=== PATIENT | female | born 1965 | race American Indian/Alaskan Native ===

== ENCOUNTER 2019-02-18 11:54 | Emergency (ER) | payer MEDICAID ==
[2019-02-18 12:14] VITALS: BP 210/113
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
[2019-02-18] MEDS ORDERED: TORADOL IM ONE (13:52)
[2019-02-18] MEDS ORDERED: DECADRON IM ONE (13:52)
[2019-02-18] MEDS ORDERED: CLEOCIN PO ONE (14:02)
--- NOTE | 2019-02-18 14:02 | Emergency Department Report ---
ED Rash HPI - HPI Chief Complaint: Skin Rash Stated Complaint: BACK PAIN/BI HAND/ELBOW RASH/CANT SLEEP Time Seen by Provider: 02/18/19 12:10 Duration: 2 weeks Location: Upper Extremities Suspected Cause: Unknown Rash Symptoms: Yes Itching, Yes Peeling, No Facial Swelling, No Tongue/Oral Swelling, No Breathing Difficulties, No Choking Sensation, No Wheezing/Dyspnea, No Blistering, No Fever, No Lightheaded, No Malaise, No Myalgias Severity: mild Other History: This is a 53-year-old female presents to the ED complaining rash to her hands. She denies contact with allergen. She denies fevers/chills/ ED Review of Systems ROS: Stated complaint: BACK PAIN/BI HAND/ELBOW RASH/CANT SLEEP Other details as noted in HPI Comment: All other systems reviewed and negative ED Past Medical Hx - Past Medical History Hx Hypertension: Yes Hx Psychiatric Treatment: Yes (Bipolar, PTSD) Additional medical history: bipolor. Hepatitis B - Surgical History Additional Surgical History: Hysterectomy - Social History Smoking Status: Current Every Day Smoker Substance Use Type: Alcohol - Medications Home Medications: Home Medications Medication Instructions Recorded Confirmed Last Taken Type hydrOXYzine PAMOATE (NF) [Vistaril] 25 mg PO Q6HR PRN #12 capsule 01/01/14 Unknown Rx risperiDONE [Risperdal] 2 mg PO QDAY #20 tab 01/01/14 Unknown Rx HYDROcodone/APAP 10-325 [Barrett 1 each PO Q6HR PRN #16 tablet 04/13/14 Unknown Rx 10-325 mg TAB] Sulfamethoxazole/Trimethoprim 1 each PO Q12H #14 tablet 04/13/14 Unknown Rx [Bactrim Ds] predniSONE [Deltasone] 20 mg PO TID #12 tab 04/13/14 Unknown Rx Cyclobenzaprine HCl [Flexeril 5 MG 5 mg PO TID #20 tab 04/28/16 Unknown Rx TAB] Ibuprofen [Motrin 600 MG tab] 600 mg PO Q8H PRN #40 tablet 04/28/16 Unknown Rx Clindamycin [Clindamycin CAP] 300 mg PO Q8H #21 cap 02/18/19 Unknown Rx Hydrocortisone 2.5% [Hytone 2.5% 1 applicatio TP TID #30 gm 02/18/19 Unknown Rx CREAM] traMADol [Ultram 50 MG tab] 50 mg PO Q6HR PRN #15 tablet 02/18/19 Unknown Rx Rash Exam - Exam General: Vital signs noted. No distress. Alert and acting appropriately. HEENT: No Periorbital Edema, No Conjuctival Injection, No Chemosis, No Perioral Edema, No Tongue Edema, No Uvular Edema, No Compromised Airway, No Drooling Lungs: Yes Good Air Exchange (Normal Breath Sounds), No Wheezes, No Ronchi, No Stridor, No Cough, No Labored Respirations, No Retractions, No Use of Accessory Muscles, No Other Abnormal Lung Sounds Heart: Yes Regular, No Murmur Skin: Yes Excoriations, Yes Tenderness, Yes Erythema, No Urticarial Rash, No Maculopapular Rash, No Morbilliform rash, No Bulla(e), No Weeping, No Edema, No Encrustations Other: Positive: Abdomen Normal, Neurologic Normal, Musculoskeletal Normal ED Course Vital Signs 02/18/19 12:10 Temperature 97.9 F Pulse Rate 68 Respiratory 18 Rate Blood Pressure 210/113 O2 Sat by Pulse 98 Oximetry ED Medical Decision Making - Medical Decision Making 53 -year-old female presents with bacterial skin infection to the hands Patient received Decadron, antibiotic and Toradol for pain in the ED. Discussed the patient take medication as prescribed. Discussed the patient follow up with the fitter and turner as well as a primary care physician. Vital signs are normal patient is in no acute distress. Critical care attestation.: If time is entered above; I have spent that time in minutes in the direct care of this critically ill patient, excluding procedure time. ED Disposition Clinical Impression: Skin lesion, infected, Rash of hands Disposition: [id number] TO HOME OR SELFCARE Is pt being admited?: No Does the pt Need Aspirin: No Condition: Stable Instructions: Impetigo (ED), Urticaria (ED), Acute Rash (ED) Additional Instructions: Make sure to follow up with the primary care physician as discussed. Take all your medications as you've been prescribed. If you have any worsening symptoms or develop new symptoms please return to ED immediately. Prescriptions: Clindamycin [Clindamycin CAP] 300 mg PO Q8H #21 cap Hydrocortisone 2.5% [Hytone 2.5% CREAM] 1 applicatio TP TID #30 gm traMADol [Ultram 50 MG tab] 50 mg PO Q6HR PRN #15 tablet PRN Reason: Pain Referrals: DAISY HUBER MD [Primary Care Provider] - 3-5 Days [facility] [Outside] - 3-5 Days [facility] [Outside] - 3-5 Days COLEMAN DOBSON MD [Staff Physician] - 3-5 Days Forms: Work/School Release Form(ED) Time of Disposition: 14:09
== END 2019-02-18 14:39 | disposition home or self-care (01) ==
LOC: ED 11:54
DX: L08.9 Local infection of the skin and subcutaneous tissue, unspecified (principal); B96.89 Other specified bacterial agents as the cause of diseases classified elsewhere; L98.9 Disorder of the skin and subcutaneous tissue, unspecified; I10 Essential (primary) hypertension; F17.200 Nicotine dependence, unspecified, uncomplicated; Z90.710 Acquired absence of both cervix and uterus
CPT/HCPCS: 96372; 99282; J1100; J1885

== ENCOUNTER 2020-04-27 11:00 | Outpatient (CLI) | payer MEDICAID | END 2020-04-27 11:01 | disposition home or self-care (01) | LOC: SLR 11:00 | PROVIDERS: ATTEND Otolaryngology | DX: G47.30 Sleep apnea, unspecified (principal) | CPT/HCPCS: 95810 ==

== ENCOUNTER 2020-05-20 11:00 | Outpatient (CLI) | payer MEDICAID | END 2020-05-20 11:01 | disposition home or self-care (01) | LOC: SLR 11:00 | PROVIDERS: ATTEND Otolaryngology | DX: G47.30 Sleep apnea, unspecified (principal) | CPT/HCPCS: 95811 ==

== ENCOUNTER 2020-11-02 09:00 | Outpatient (CLI) | payer MEDICARE ==
[2020-11-02 10:25] LABS: Hematocrit 37.6 % (30.3-42.9); Hemoglobin 12.7 gm/dl (10.1-14.3); Mean Corpuscular HGB Conc 34 % (30-34); Mean Corpuscular Volume 89 fl (79-97); Platelet Count 231 K/mm3 (140-440); Red Blood Count 4.22 M/mm3 (3.65-5.03)
[2020-11-02 10:47] LABS: ABG Base Excess -0.8 mmol/L (-2.0-3.0); ABG HCO3 23.9 mmol/L (20.0-26.0); ABG Methemoglobin 0.5 % (0.0-1.5); ABG Oxygen Saturation 96.6 % (95.0-99.0); ABG PCO2 39.7 mm Hg; ABG PH 7.398 pH Units (7.350-7.450); ABG PO2 78.3 mm Hg (80.0-90.0)
[2020-11-02 10:49] LABS: Alanine Aminotransferase 37 units/L (7-56); Albumin 4.2 g/dL (3.9-5); Blood Urea Nitrogen 20 mg/dL (7-17); Chol/HDL Ratio 3.24 %; HDL Cholesterol 49 mg/dL (40-59); Hemolysis Index 1; LDL Cholesterol,Direct 104 mg/dL (50-130)
[2020-11-02 11:06] LABS: BUN/Creatinine Ratio 29
--- NOTE | 2020-11-02 11:48 | Fluoroscopy Report ---
UPPER GI HISTORY: CHRONIC OBSTRUCTION,GASTRO ESOPHAGEAL. TECHNIQUE: Single and double contrast barium technique utilized to evaluate the esophagus, stomach, and duodenal C-loop. FINDINGS: To begin the exam, swallowing was evaluated in the lateral position under direct fluorosco py. Swallowing was normal. No mucosal irregularity, mass, mass effect, or critical stenosis. No hiatal hernia or gastroesophag eal reflux was witnessed during this exam. Esophageal motility appeared normal. Gastric motility appe ared slightly decreased with delayed emptying. IMPRESSION: No evidence for hiatal hernia or reflux. No mucosal lesion. Mild decreased gastric motil ity was suspected throughout this exam. Fluoroscopic time: 3.1 minutes Number of fluoroscopic images: 13 Signer Name: Wayne Keane Jr, MD Signed: 11/02/2020 10:21 AM Workstation Name: [id number]
== END 2020-11-02 13:00 | disposition home or self-care (01) ==
LOC: FLUORO 09:00
PROVIDERS: ATTEND Internal Medicine
DX: J44.9 Chronic obstructive pulmonary disease, unspecified (principal); I10 Essential (primary) hypertension; K21.9 Gastro-esophageal reflux disease without esophagitis; R06.00 Dyspnea, unspecified; G47.33 Obstructive sleep apnea (adult) (pediatric)
CPT/HCPCS: 36415; 74246; 80053; 80061; 82785; 82803; 84436; 84443; 85027